=== PATIENT | male | born 1970 | race Caucasian/White ===

== ENCOUNTER → 2024-11-15 07:23 | Outpatient (REF) | payer OTHER, SELFPAY | LOC: HWRAD 07:23 | PROVIDERS: ATTENDING PHYSICIAN Internal Medicine; FAMILY PHYSICIAN Family Medicine | DX: K80.21 Calculus of gallbladder without cholecystitis with obstruction (principal); R74.8 Abnormal levels of other serum enzymes; R14.0 Abdominal distension (gaseous) | CPT/HCPCS: 76700 ==